=== PATIENT | female | born 1945 | race Caucasian/White ===

== ENCOUNTER 2017-06-17 11:04 | Inpatient (IN) | payer MEDICARE ==
[2017-06-17] VITALS (7 sets, daily range): BP systolic 103–108; BP diastolic 54–88; PULSE 96–100; RESP 20–37; TEMP 97.9–99; O2SAT 82–99
[~2017-06-17 11:04] MED LIST: ALBU0.63 NEB; AMLO5TAB2 PO; ASPI-516 CHEW; ATOR40TA16 PO; COLE625 PO; DEXI60CA3 PO; FLUT1INH INH; LOSA100T PO; METO25TA3 PO; MULTTAB67 PO; POTA10CA PO; ROZE8TAB19 PO
[2017-06-17] MEDS ORDERED: POTASSIUM CHLORIDE 10 MEQ CONTROLLED RELEASE TAB PO ONE (15:30)
[2017-06-17] MEDS ORDERED: LEVOFLOXACIN 750 MG TAB PO SCH (15:30)
[2017-06-17] MEDS ORDERED: IBUPROFEN 400 MG TAB PO PRN (15:30)
[2017-06-17] MEDS ORDERED: RESP: ALBUTEROL 2.5 MG/IPRATROPIUM 0.5 MG NEB (PRN) NEB (15:30)
[2017-06-17] MEDS ORDERED: SODIUM CHLORIDE 0.9% FLUSH 10 ML FLUSH IV FLUSH PRN (15:30)
--- NOTE | 2017-06-17 15:59 | HHI.HP ---
[facility]Staff Admission Diagnosis Diagnoses: Chief Complaint: Chest pain Travel History International Travel<30 Days: No Contact w/Intl Traveler <30 Da: No History of Present Illness Patient is a very pleasant 72-year-old female who appears younger than stated age who had increased cough and increased work of breathing for 2 days and yesterday she had severe chest pain on the left side which was nonradiating and exacerbated by coughing. She went to the hospital for further evaluation. Apparently she has a history of pneumothorax in the past and the pain was so severe she was worried that was happening again. She does continue to smoke a pack a day despite her history of emphysema/COPD. She does see her lung doctors over in [facility]. She had some associated nausea vomiting but that seems to have resolved. She went to the emergency room for further evaluation appears to have some leukocytosis with some tachypnea and hypotension and was admitted to the hospital because of these signs and symptoms of sepsis with pneumonia seen on chest x-ray. On my review this is a bilateral pneumonia will warrant further. Patient has been transferred from [facility] for admission due to signs and symptoms of sepsis with pneumonia. Review of Systems Constitutional: DENIES: Diaphoretic episodes, Fatigue, Fever, Weight gain, Weight loss, Chills, Dizziness, Change in appetite, Night Sweats Endocrine: DENIES: Abnorml menstrual pattern, Heat/cold intolerance, Polydipsia , Polyuria, Polyphagia Eyes: DENIES: Blurred vision, Diplopia, Eye inflammation, Eye pain, Vision loss , Photosensitivity, Double Vision Ears, nose, mouth, throat: DENIES: Tinnitus, Hearing loss, Vertigo, Nasal discharge, Oral lesions, Throat pain, Hoarseness, Ear Pain, Running Nose, Epistaxis, Sinus Pain, Toothache, Odynophagia Respiratory: COMPLAINS OF: Cough, DENIES: Apneas, Snoring, Wheezing, Hemoptysis , Sputum production, Shortness of breath Cardiovascular: COMPLAINS OF: Chest pain, DENIES: Palpitations, Syncope, Dyspnea on Exertion, PND, Lower Extremity Edema, Orthopnea, Claudication Gastrointestinal: DENIES: Abdominal pain, Black stools, Bloody stools, Constipation, Diarrhea, Nausea, Vomiting, Difficulty Swallowing, Anorexia Genitourinary: DENIES: Abnormal vaginal bleeding, Dysmenorrhea, Dyspareunia, Sexual dysfunction, Urinary frequency, Urinary incontinence, Urgency, Hematuria , Dysuria, Nocturia, Vaginal discharge Musculoskeletal: DENIES: Joint pain, Muscle aches, Stiffness, Joint Swelling, Back pain, Neck pain Integumentary: DENIES: Abnormal pigmentation, Pruritus, Rash, Nail changes, Breast masses, Breast skin changes, Nipple discharge Hematologic/lymphatic: DENIES: Bruising, Lymphadenopathy Neurologic: DENIES: Abnormal gait, Headache, Localized weakness, Paresthesias, Seizures, Speech Problems, Tremor, Poor Balance Psychiatric: DENIES: Anxiety, Confusion, Mood changes, Depression, Hallucinations, Agitation, Suicidal Ideation, Homicidal Ideation, Delusions Except as stated in HPI: all other systems reviewed are Neg Past Family Social History Past Medical History Tobacco dependency History of emphysema/COPD Hyperlipidemia Hypertension Insomnia Past Surgical History Appendectomy Cholecystectomy Cardiac stent 3 Hysterectomy Spinal stenosis Reported Medications Reviewed in the EMR Allergies: Coded Allergies: codeine (Verified Allergy, Severe, 06/17/17) meperidine (Verified Allergy, Severe, 06/17/17) methylprednisolone (Verified Allergy, Severe, 06/17/17) zinc (Verified Allergy, Severe, 06/17/17) Active Ordered Medications Reviewed in the EMR Physical Exam Vital Signs Vital Signs Date Time Temp Pulse Resp B/P (MAP) Pulse Ox O2 Delivery O2 Flow Rate FiO2 06/17/17 12:09 100 37 99 06/17/17 11:47 97.9 97 21 108/54 (72) 95 Physical Exam GENERAL: This is a well-nourished, well-developed patient, in no apparent distress. SKIN: No rashes, ecchymoses or lesions. Cool and dry. HEAD: Atraumatic. Normocephalic. No temporal or scalp tenderness. EYES: Pupils equal round and reactive. Extraocular motions intact. No scleral icterus. No injection or drainage. ENT: Nose without bleeding, purulent drainage or septal hematoma. Throat without erythema, tonsillar hypertrophy or exudate. Uvula midline. Airway patent. NECK: Trachea midline. No JVD or lymphadenopathy. Supple, nontender, no meningeal signs. CARDIOVASCULAR: Regular rate and rhythm without murmurs, gallops, or rubs. RESPIRATORY: Clear to auscultation. Breath sounds equal bilaterally. No wheezes , rales, or rhonchi. GASTROINTESTINAL: Abdomen soft, non-tender, nondistended. No hepato-splenomegaly , or palpable masses. No guarding. MUSCULOSKELETAL: Extremities without clubbing, cyanosis, or edema. No joint tenderness, effusion, or edema noted. No calf tenderness. Negative Homans sign bilaterally. NEUROLOGICAL: Awake and alert. Cranial nerves II through XII intact. Motor and sensory grossly within normal limits. Five out of 5 muscle strength in all muscle groups. Normal speech. Caprini VTE Risk Assessment Caprini VTE Risk Assessment: Mod/High Risk (score >= 2) Caprini Risk Assessment Model Point Value = 1 Point Value = 2 Point Value = 3 Point Value = 5 Age 41-60 Minor surgery BMI > 25 kg/m2 Swollen legs Varicose veins or History of unexplained or recurrent spontaneous Oral contraceptives or hormone replacement Sepsis (< 1 month) Serious lung disease, including pneumonia (< 1 month) Abnormal pulmonary function Acute myocardial infarction Congestive heart failure (< 1 month) History of inflammatory bowel disease Medical patient at bed rest Age 61-74 Arthroscopic surgery Major open surgery (> 45 min) Laparoscopic surgery (> 45 min) Malignancy Confined to bed (> 72 hours) Immobilizing plaster cast Central venous access Age >= 75 History of VTE Family history of VTE Factor V Leiden Prothrombin [id number] Lupus anticoagulant Anticardiolipin antibodies Elevated serum homocysteine Heparin-induced thrombocytopenia Other congenital or acquired thrombophilia Stroke (< 1 month) Elective arthroplasty Hip, pelvis, or leg fracture Acute spinal cord injury (< 1 month) Prophylaxis Regimen Total Risk Factor Score Risk Level Prophylaxis Regimen 0-1 Low Early ambulation 2 Moderate Order ONE of the following: *Sequential Compression Device (SCD) *Heparin 5000 units SQ BID 3-4 Higher Order ONE of the following medications: *Heparin 5000 units SQ TID *Enoxaparin/Lovenox 40 mg SQ daily (WT < 150 kg, CrCl > 30 mL/min) *Enoxaparin/Lovenox 30 mg SQ daily (WT < 150 kg, CrCl > 10-29 mL/min) *Enoxaparin/Lovenox 30 mg SQ BID (WT < 150 kg, CrCl > 30 mL/min) AND/OR *Sequential Compression Device (SCD) 5 or more Highest Order ONE of the following medications: *Heparin 5000 units SQ TID (Preferred with Epidurals) *Enoxaparin/Lovenox 40 mg SQ daily (WT < 150 kg, CrCl > 30 mL/min) *Enoxaparin/Lovenox 30 mg SQ daily (WT < 150 kg, CrCl > 10-29 mL/min) *Enoxaparin/Lovenox 30 mg SQ BID (WT < 150 kg, CrCl > 30 mL/min) AND *Sequential Compression Device (SCD) Assessment and Plan Problem List: (1) CAP (community acquired pneumonia) ICD Code: J18.9 - Pneumonia, unspecified organism Plan: We will continue with antibiotics for community acquired pneumonia Anti-inflammatories for chest pain which is likely pulmonary related With evidence of severe sepsis by elevated white cell count, tachypnea and hypotension Group A strep and influenza are negative (2) COPD (chronic obstructive pulmonary disease) ICD Code: J44.9 - Chronic obstructive pulmonary disease, unspecified Plan: Continue with bronchodilators by nebulizer, IV steroids for short course (3) Chest pain, atypical ICD Code: R07.89 - Other chest pain Plan: Continue Cardiac enzymes Continue telemetry Patient with history of coronary artery disease (4) Hypotension ICD Code: I95.9 - Hypotension, unspecified Plan: We will hold home blood pressure medications, give IV saline and continue to follow closely for improvement Code Status Full code Jaylene Rich MD Jun 17, 2017 15:59
[2017-06-17] MEDS ORDERED: LEVOFLOXACIN 500 MG PREMIX INJ 100 ML IV SCH (16:00)
[2017-06-17] MEDS ORDERED: RAMELTEON 8 MG PO PRN (16:15)
[2017-06-17] MEDS: PANTOPRAZOLE SOD 40 MG DELAYED RELEASE TAB PO SCH (17:23)
[2017-06-17] MEDS: SODIUM CHLOR 0.9% 1000 ML INJ 1,000 ML IV SCH (17:23)
[2017-06-17] MEDS: NICOTINE 21 MG/24 HR PATCH T-DERMAL SCH (17:23)
[2017-06-17 19:29] LABS: CHLORIDE 105 MEQ/L (98-107); SODIUM (NA) 137 MEQ/L (136-145)
[2017-06-17 19:32] LABS: CALCIUM 8.3 MG/DL (8.5-10.1)
[2017-06-17 19:33] LABS: BLOOD UREA NITROGEN 14 MG/DL (7-18); GLUCOSE,RANDOM 115 MG/DL (74-106)
[2017-06-17 19:36] LABS: CREATININE 0.74 MG/DL (0.50-1.00); GLOMERULAR FILTRATION RATE 77 ML/MIN (>89)
[2017-06-17] MEDS: RESP: ALBUTEROL 2.5 MG/IPRATROPIUM 0.5 MG NEB (SCH) NEB (19:38)
[2017-06-17 19:40] LABS: TROPONIN I LESS THAN 0.02 NG/ML (0.02-0.05)
[2017-06-17] MEDS: SODIUM CHLORIDE 0.9% FLUSH 10 ML FLUSH IV FLUSH SCH (19:52)
[2017-06-17] MEDS: predniSONE 20 MG TAB PO SCH (19:52)
[2017-06-17] MEDS: COLESEVELAM HCL 625 MG TAB PO SCH (19:53)
[2017-06-17] MEDS ORDERED: REMOVE OLD NICODERM (NICOTINE) PATCH T-DERMAL SCH (21:00)
[2017-06-17] MEDS ORDERED: ATORVASTATIN 40 MG TAB PO SCH (21:00)
[2017-06-18] VITALS: BP 135/59; PULSE 101; RESP 22; TEMP 98; O2SAT 95
[2017-06-18] MEDS: SODIUM CHLOR 0.9% 1000 ML INJ 1,000 ML IV SCH (03:14)
[2017-06-18] MEDS: RESP: ALBUTEROL 2.5 MG/IPRATROPIUM 0.5 MG NEB (SCH) NEB (07:13)
[2017-06-18 07:15] VITALS: O2SAT 98
[2017-06-18 08:08] LABS: AUTOMATED NEUTROPHIL # 8.3 TH/MM3 (1.8-7.7); BASOPHIL # 0.2 TH/MM3 (0-0.2); BASOPHIL % 1.7 % (0.0-2.0); EOSINOPHIL % 0.1 % (0.0-4.0); HEMATOCRIT 31.5 % (35.0-46.0); HEMOGLOBIN 11.3 GM/DL (11.6-15.3); LYMPH % 9.7 % (9.0-44.0); LYMPHOCYTE # 0.9 TH/MM3 (1.0-4.8); MEAN CELL VOLUME 83.5 FL (80.0-100.0); MEAN PLATELET VOLUME 8.6 FL (7.0-11.0); MONO % 2.6 % (0.0-8.0); MONOCYTE # 0.3 TH/MM3 (0-0.9); NEUT % 85.9 % (16.0-70.0); PLATELET COUNT 226 TH/MM3 (150-450); RED BLOOD COUNT 3.77 MIL/MM3 (4.00-5.30); RED CELL DISTRIBUTION WIDTH 13.8 % (11.6-17.2)
[2017-06-18 08:33] VITALS: BP 125/60; PULSE 111; RESP 24; TEMP 98.1; O2SAT 96
[2017-06-18] MEDS: SODIUM CHLORIDE 0.9% FLUSH 10 ML FLUSH IV FLUSH SCH (08:40)
[2017-06-18] MEDS: NICOTINE 21 MG/24 HR PATCH T-DERMAL SCH (08:40)
[2017-06-18] MEDS: COLESEVELAM HCL 625 MG TAB PO SCH (08:40)
[2017-06-18] MEDS: predniSONE 20 MG TAB PO SCH (08:40)
[2017-06-18] MEDS: PANTOPRAZOLE SOD 40 MG DELAYED RELEASE TAB PO SCH (08:40)
[2017-06-18 09:16] LABS: BURR CELLS 1+ (NORMAL)
[2017-06-18 09:17] LABS: WHITE BLOOD COUNT 9.7 TH/MM3 (4.0-11.0)
[2017-06-18] MEDS ORDERED: INFLUENZA VIRUS VACCINE (QUADRIVALENT) 0.5 ML SYR IM ONE (10:00)
[2017-06-18] MEDS ORDERED: LEVO500T8 PO (10:02)
[2017-06-18] MEDS ORDERED: PRED10PA PO (10:02)
--- NOTE | 2017-06-18 10:03 | HHI.DCPOC ---
Discharge Care Plan Diagnosis: (1) COPD (chronic obstructive pulmonary disease) (2) CAP (community acquired pneumonia) Goals to Promote Your Health * To prevent worsening of your condition and complications * To maintain your health at the optimal level Directions to Meet Your Goals Take your medications as prescribed Follow your dietary instruction Follow activity as directed Keep your appointments as scheduled Take your immunizations and boosters as scheduled If your symptoms worsen call your PCP, if no PCP go to Urgent Care Center or Emergency Room Smoking is Dangerous to Your Health. Avoid second hand smoke Call the 24-hour hour crisis hotline for domestic abuse at Jaylene Rich MD Jun 18, 2017 10:02
[2017-06-18 10:05] LABS: BICARBONATE 22.4 MEQ/L (21.0-32.0); CALCIUM 8.1 MG/DL (8.5-10.1); CREATININE 0.61 MG/DL (0.50-1.00)
[2017-06-18] MEDS ORDERED: NICO21DI25 T-DERMAL (10:07)
--- NOTE | 2017-06-18 10:08 | HHI.DS ---
Discharge Summary Admission Date Jun 17, 2017 at 11:14 Discharge Date: Jun 18, 2017 Admitting Diagnosis (1) CAP (community acquired pneumonia) ICD Code: J18.9 - Pneumonia, unspecified organism (2) COPD (chronic obstructive pulmonary disease) ICD Code: J44.9 - Chronic obstructive pulmonary disease, unspecified (3) Chest pain, atypical ICD Code: R07.89 - Other chest pain (4) Hypotension ICD Code: I95.9 - Hypotension, unspecified Procedures none Brief History - From Admission Patient is a very pleasant 72-year-old female who appears younger than stated age who had increased cough and increased work of breathing for 2 days and yesterday she had severe chest pain on the left side which was nonradiating and exacerbated by coughing. She went to the hospital for further evaluation. Apparently she has a history of pneumothorax in the past and the pain was so severe she was worried that was happening again. She does continue to smoke a pack a day despite her history of emphysema/COPD. She does see her lung doctors over in [facility]. She had some associated nausea vomiting but that seems to have resolved. She went to the emergency room for further evaluation appears to have some leukocytosis with some tachypnea and hypotension and was admitted to the hospital because of these signs and symptoms of sepsis with pneumonia seen on chest x-ray. On my review this is a bilateral pneumonia will warrant further. Patient has been transferred from [facility] for admission due to signs and symptoms of sepsis with pneumonia. CBC/BMP: 06/18/17 0755 06/17/17 1910 Significant Findings Laboratory Tests Test 06/17/17 19:10 06/18/17 07:55 Random Glucose 115 MG/DL (74-106) Calcium Level 8.3 MG/DL (8.5-10.1) Potassium Level 3.3 MEQ/L (3.5-5.1) Estimat Glomerular Filtration Rate 77 ML/MIN (>89) Troponin I LESS THAN 0.02 NG/ML Red Blood Count 3.77 MIL/MM3 (4.00-5.30) Hemoglobin 11.3 GM/DL (11.6-15.3) Hematocrit 31.5 % (35.0-46.0) Neutrophils (%) (Auto) 85.9 % (16.0-70.0) Neutrophils # (Auto) 8.3 TH/MM3 (1.8-7.7) Lymphocytes # (Auto) 0.9 TH/MM3 (1.0-4.8) [place] Cells 1+ (NORMAL) Imaging CXRay : Bilat Pnuemonia PE at Discharge GENERAL: This is a well-nourished, well-developed patient, in no apparent distress. CARDIOVASCULAR: Regular rate and rhythm without murmurs, gallops, or rubs. RESPIRATORY: Clear to auscultation. Breath sounds equal bilaterally. No wheezes , rales, or rhonchi. GASTROINTESTINAL: Abdomen soft, non-tender, nondistended. Normal active bowel sounds MUSCULOSKELETAL: Extremities without clubbing, cyanosis, or edema. NEURO: Alert & Oriented x4 to person, place, time, situation. Moves all ext x4 Transfer Summary From [facility] Pt update on day of discharge Doing much better today Overall improved Hospital Course This patient is a 72-year-old female with a history of COPD who came to the emergency room and [facility] with signs and symptoms of pneumonia and pleuritic chest pain and had a chest x-ray on my review which was positive for bilateral pneumonia. She was given antibiotics. She also has a strong history of tobacco dependency and was treated for mild exacerbation of COPD with nebulized bronchodilators and steroids. Patient did well and was discharged home. She met sepsis criteria on admission and her blood pressure and leukocytosis improved Pt Condition on Discharge: Good Discharge Disposition: Discharge Home Discharge Time: <= 30 minutes Discharge Instructions DIET: Follow Instructions for: As Tolerated, No Restrictions Activities you can perform: Regular-No Restrictions Follow up Referrals: PCP Follow-up - 1 Week Jaylene Rich MD Jun 18, 2017 10:08
== END 2017-06-18 11:10 | disposition home or self-care (01) | DRG 194 ==
LOC: PHEDDLT 11:04 → PHICU 11:14 → OBSVTOIN 06-18 09:13
PROVIDERS: ADMIT Hospitalist; ATTEND Hospitalist
DX: J18.9 Pneumonia, unspecified organism (principal); J44.0 Chronic obstructive pulmonary disease with (acute) lower respiratory infection; I95.9 Hypotension, unspecified; J44.1 Chronic obstructive pulmonary disease with (acute) exacerbation; R07.89 Other chest pain; I25.10 Atherosclerotic heart disease of native coronary artery without angina pectoris; E78.5 Hyperlipidemia, unspecified; I10 Essential (primary) hypertension; R06.82 Tachypnea, not elsewhere classified; R11.2 Nausea with vomiting, unspecified; F17.210 Nicotine dependence, cigarettes, uncomplicated; Z95.5 Presence of coronary angioplasty implant and graft
CPT/HCPCS: 36600; 71046; 76937; 80048; 80053; 82805; 83880; 84484; 85025; 87040; 87081; 87804; 87880; 93005; 94640; 94664; 96365; 96368; 96375; G0378; J0456; J0696; J1956; J2405; J7030; J7050; J7512